=== PATIENT | male | born 1990 | race Caucasian/White ===

== ENCOUNTER 2017-02-16 04:34 | Emergency (ER) | payer OTHER ==
[~2017-02-16] VITALS: Ht 170.2 cm; Wt 77.0 kg
[2017-02-16 04:41] VITALS: BP 144/90; PULSE 111; RESP 18; TEMP 98.5; O2SAT 98
--- NOTE | 2017-02-16 04:57 | PD ---
HPI Chief Complaint: Alcohol/Drug Intoxication Time Seen by Provider: 04:47 Travel History International Travel<30 days: No Contact w/Intl Traveler<30days: No Traveled to known affect area: No History of Present Illness HPI 26-year-old white male presents to emergency department under a [place] act by PD. The patient was at a convenience store attempting to buy cigarettes this evening and was heavily intoxicated. It was initially going to be a traffic stop for DUI but unfortunately the patrol police lieutenant did not identify the cdl driver of the vehicle after had stopped. The patient admits to drinking heavily tonight. During his intake by PD he had accidentally hit the right side of his scalp on the patrol car causing a scalp laceration. He denies syncope. No neck or back pain. No numbness, tingling or weakness. Pain is mild. He does admit to some nausea but no vomiting. Patient does admit to a history of bipolar and has been off his medications for many years. He denies any suicidal homicidal ideation. [facility] Past Medical History Narrative Medical Bipolar, anxiety Diabetes: No Tetanus Vaccination: > 5 Years Past Surgical History Narrative Surgical Foreign body removals Social History Alcohol Use: Yes Tobacco Use: Yes Substance Use: No Allergies-Medications (Allergen,Severity, Reaction): Coded Allergies: No Known Allergies (Unverified Allergy, Unknown, 02/16/17) shellfish derived (Verified Allergy, Unknown, 02/16/17) Reported Meds & Prescriptions Reported Meds & Active Scripts Active Review of Systems General / Constitutional: No: Fever Eyes: No: Visual changes HENT: No: Headaches Cardiovascular: No: Chest Pain or Discomfort Respiratory: No: Shortness of Breath Gastrointestinal: No: Abdominal Pain Genitourinary: No: Dysuria Musculoskeletal: No: Pain Skin: No Rash Neurologic: No: Weakness Psychiatric: Positive: Substance Abuse, No: Anxiety, Depression, Suicidal Ideations, Disorder of Thought, Mood Disorder, Homicidal Ideation Endocrine: No: Polydipsia Hematologic/Lymphatic: No: Easy Bruising Physical Exam Narrative GENERAL: Well-nourished, well-developed patient. SKIN: Warm. Right parietal scalp laceration HEAD: There is a 2.5 cm laceration to the patient's right parietal scalp. EYES: No scleral icterus. No injection or drainage. ENT: No nasal drainage noted. Mucous membranes pink. Airway patent. NECK: Supple, trachea midline. Moves head freely without obvious discomfort. CARDIOVASCULAR: Regular rate and rhythm without murmurs, gallops, or rubs. RESPIRATORY: Breath sounds equal bilaterally. No accessory muscle use. GASTROINTESTINAL: Abdomen soft, non-tender, nondistended. EXTREMITIES: No cyanosis or edema. BACK: Nontender without obvious deformity. No CVA tenderness. NEURO: Patient is alert and oriented. no sensorimotor deficits. Nonfocal. Slurred speech. PSYCH: No delusions. No auditory or visual hallucinations. Data Data Last Documented VS Vital Signs Date Time Temp Pulse Resp B/P (MAP) Pulse Ox O2 Delivery O2 Flow Rate FiO2 02/16/17 04:41 98.5 111 18 144/90 (108) 98 Orders Orders Tetanus/Diphtheria Tox Adult (Tetanus/Di (02/16/17 05:00) Ondansetron Odt (Zofran Odt) (02/16/17 05:00) MDM Medical Decision Making Medical Screen Exam Complete: Yes Emergency Medical Condition: Yes Medical Record Reviewed: Yes Differential Diagnosis Differential diagnoses: Alcohol intoxication, substance abuse, electrolyte abnormality, malingering Narrative Course This is a 26-year-old intoxicated male who was brought in under [facility] acted alcohol intoxication. He had accidentally hit his head on part of the police car during his intake to the ER. There is no history of syncope. He has been cooperative to exam. His laceration is closed with sammy. Patient's tetanus status updated. He'll be monitored in the ER until he emilia up. At this time CT scan of the brain is not indicated. The patient will be consider medically cleared when he exhibits higher-level sobriety. This is alcohol intoxication, scalp laceration Procedures Procedure Narrative LACERATION LOCATION: Right parietal scalp LENGTH: 2.5 cm NUMBER OF STITCHES/SAMMY: 4 REPAIR: The area of the laceration was prepped with Betadine and sterilely draped. The laceration was infiltrated with 1% lidocaine. The wound was copiously irrigated and explored without evidence of foreign body, tendon injury or neurovascular injury. The wound was closed using sammy]. This was a simple single layer repair. A sterile dressing was applied. The patient was advised to keep the dressing clean and dry. Patient tolerated the procedure well. Diagnosis Primary Impression: alcohol intoxication Additional Impression: scalp laceration Patient Instructions: General Instructions Additional Instructions: Rest. Head precautions. Elevation. Tylenol and Advil for pain. Daily wound care with soap, water, Neosporin. Sutures out in 9 days. Return to the ER if any problems. No operating any heavy machinery or driving a car under the influence of alcohol or drugs. Med/Other Pt SpecificInfo: No Meds Exist/No RX given, Wound Care Disposition: 01 DISCHARGE HOME Condition: Stable Deny Coyle Feb 16, 2017 04:57
[2017-02-16] MEDS ORDERED: ONDANSETRON ODT 4 MG TAB PO ONE (05:00)
[2017-02-16] MEDS ORDERED: TETANUS/DIPHTHERIA TOXOID ADULT 0.5 ML VIAL IM ONE (05:00)
[2017-02-16 09:30] VITALS: BP 136/86; PULSE 102; RESP 18; O2SAT 98
== END 2017-02-16 09:33 | disposition home or self-care (01) ==
LOC: NEPD 04:34
DX: F10.920 Alcohol use, unspecified with intoxication, uncomplicated (principal); S01.01XA Laceration without foreign body of scalp, initial encounter; W22.8XXA Striking against or struck by other objects, initial encounter; Z23 Encounter for immunization; Z72.0 Tobacco use
CPT/HCPCS: 12001; 90471; 90714